=== PATIENT | male | born 1985 | race Two or more races ===

== ENCOUNTER → 2024-01-29 | Outpatient (CLI) | payer BC, SELFPAY ==
[2024-01-29 13:39] LABS: Basophils % (Auto) 1 % (0-2.5); Eosinophils # (Auto) 0.1 Thou/mm3 (0.0-0.5); Eosinophils % (Auto) 2 % (0-10); Hematocrit 46.8 % (41.0-53.0); Hemoglobin 16.7 g/dL (13.5-16.0); Immature Granulocytes % (Auto) 0 % (0-0); Immature Granulocytes Auto 0.01 Thou/mm3 (0.00-0.00); Lymphocytes # (Auto) 2.4 Thou/mm3 (1.0-4.8); Lymphocytes % (Auto) 37 % (10-50); Mean Corpuscular HGB Conc 35.7 g/dl (31.0-37.0); Mean Corpuscular Volume 84 fL (80-100); Monocytes # (Auto) 0.4 Thou/mm3 (0.0-0.8); Monocytes % (Auto) 7 % (0-12); Neutrophils # (Auto) 3.5 Thou/mm3 (1.8-7.7); Neutrophils % (Auto) 54 % (37-80); Nucleated Red Blood Cell % 0 /100 WBC (0); Platelet Count 247 Thou/mm3 (140-440); RDW Standard Deviation 37.1 fL (35.1-43.9); Red Blood Count 5.56 Miln/mm3 (4.50-5.90); White Blood Count 6.5 Thou/mm3 (3.8-10.6)
[2024-01-29 13:58] LABS: Prostate Specific Antigen 0.79 ng/mL (0-4.00)
[2024-01-29 14:02] LABS: Vitamin D 25 Hydroxy Total 17.2 ng/mL (7.3-40.2)
[2024-02-18 09:09] LABS: Testosterone, Total, Dialysis 154 ng/dL (250-1100)
== END | disposition home or self-care (01) ==
PROVIDERS: PCP Family Medicine; Referring Provider Nurse Practitioner Family; Visit Provider Nurse Practitioner Family
DX: E55.9 Vitamin D deficiency, unspecified (principal); R53.83 Other fatigue; Z13.89 Encounter for screening for other disorder; Z12.5 Encounter for screening for malignant neoplasm of prostate; R97.20 Elevated prostate specific antigen [PSA]; R97.21 Rising PSA following treatment for malignant neoplasm of prostate; Z13.9 Encounter for screening, unspecified
CPT/HCPCS: 36415; 82306; 84153; 84402; 84403; 85025

== ENCOUNTER 2024-06-14 21:26 | Emergency (ER) | payer BC, SELFPAY ==
[2024-06-14 21:27] VITALS: BMI 34.4
--- NOTE | 2024-06-14 21:29 | EKG_ITS ---
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
[2024-06-14 21:35] VITALS: BP 150/95; PULSE 74; RESP 20; TEMP 37.1; O2SAT 96
--- NOTE | 2024-06-14 21:40 | XR_ITS ---
Examination: PA and lateral chest 2 views TECHNIQUE: Upright PA lateral chest 2 views Standing type: June 14, 2024 2147 hours INDICATIONS: Chest pain beginning 2:00 today. FINDINGS: Normal heart size Lungs are clear. The osseous structures are intact IMPRESSION: No active disease
--- NOTE | 2024-06-14 21:40 | PD.EDRME ---
Rapid Medical Screening Exam E Arrival date/time: 06/14/24 21:26 This is a 38-year-old male that comes in with complaints of chest pain. Patient states that over the last couple days he has been having palpitations. Sometimes the palpitations wake him up in the middle the night while he sleeping. Patient currently undergoing therapy for low testosterone. Patient denies any surgical history. I have greeted and performed a focused initial assessment of this patient. Initial appropriate labs ordered at this time. A comprehensive ED assessment and evaluation of the patient and analysis of all test and completion of medical decision making process will be conducted by additional ED provider. Chief Complaint: Chest Pain Time Seen by Provider: 06/14/24 21:34 Vital signs: Vital Signs Temperature 98.8 F 06/14/24 21:35 Pulse Rate 74 06/14/24 21:35 Respiratory Rate 20 06/14/24 21:35 Blood Pressure 150/95 H 06/14/24 21:35 Pulse Oximetry (%) 96 06/14/24 21:35 Oxygen Delivery Method Room Air 06/14/24 21:35
[2024-06-14 22:08] LABS: Basophils # (Auto) 0.1 Thou/mm3 (0.0-0.2); Basophils % (Auto) 1 % (0-2.5); Eosinophils # (Auto) 0.3 Thou/mm3 (0.0-0.5); Eosinophils % (Auto) 3 % (0-10); Hemoglobin 16.9 g/dL (13.5-16.0); Immature Granulocytes % (Auto) 0 % (0-0); Immature Granulocytes Auto 0.03 Thou/mm3 (0.00-0.00); Lymphocytes # (Auto) 3.3 Thou/mm3 (1.0-4.8); Lymphocytes % (Auto) 38 % (10-50); Mean Corpuscular HGB Conc 35.2 g/dl (31.0-37.0); Mean Corpuscular Hemoglobin 30.3 pg (25.0-35.0); Mean Corpuscular Volume 86 fL (80-100); Monocytes # (Auto) 0.7 Thou/mm3 (0.0-0.8); Monocytes % (Auto) 7 % (0-12); Neutrophils # (Auto) 4.5 Thou/mm3 (1.8-7.7); Neutrophils % (Auto) 51 % (37-80); Nucleated Red Blood Cell % 0 /100 WBC (0); Platelet Count 234 Thou/mm3 (140-440); RDW Standard Deviation 38.8 fL (35.1-43.9); Red Blood Count 5.57 Miln/mm3 (4.50-5.90); White Blood Count 8.9 Thou/mm3 (3.8-10.6)
[2024-06-14 22:24] LABS: B-Type Natriuretic Peptide < 20 pg/mL (0-100)
[2024-06-14 22:27] LABS: Alanine Aminotransferase 51 U/L (10-49); Albumin, Serum 4.7 gm/dL (3.5-5.0); Albumin/Globulin Ratio 1.9 (1.2-2.2); Alkaline Phosphatase 63 U/L (46-116); Anion Gap 5 (7-16); Aspartate Amino Transferase 32 U/L (0-34); BUN/Creatinine Ratio 7 Ratio (12-20); Bilirubin,Total 0.6 mg/dL (0.3-1.2); Blood Urea Nitrogen 8 mg/dL (9-23); Calcium 9.5 mg/dL (8.3-10.6); Calcium (Corrected) 9.5 mg/dL (8.5-10.1); Carbon Dioxide 29.8 mMol/L (20.0-31.0); Chloride 109 mMol/L (98-107); Creatinine (Component) 1.1 mg/dL (0.6-1.3); Estimated Creatinine Clearance 114.7 mL/min (>60); Globulin 2.5 gm/dL (2.3-3.5); Glucose 94 mg/dL (74-106); Osmolality,Calculated 285 (275-295); Sodium 144 mMol/L (136-145); Total Protein 7.2 gm/dL (5.7-8.2); Troponin I < 0.002 ng/mL (0.0-0.045); eGFR > 60 See Note
[2024-06-15 01:18] LABS: Troponin I < 0.002 ng/mL (0.0-0.045)
[2024-06-15 02:30] VITALS: BP 136/81; PULSE 61; RESP 18; TEMP 36.7; O2SAT 97
--- NOTE | 2024-06-15 02:37 | PD.EDCHEST ---
ED Chest Pain RME/HPI General Chief Complaint: Chest Pain Stated Complaint: CHEST PAIN SINCE 1400 Time Seen by Provider: 06/14/24 21:34 Source: patient, family, RN notes reviewed and old records reviewed Arrival date/time: 06/14/24 21:26 Mode of arrival: ambulatory Limitations: no limitations RME / HPI RME / HPI narrative: 38yom presents to the ED for chest pain since 1400 today. No exacerbating factors, pain just comes and goes. Patient reports intermittent palpitations for the past week. Currently on testosterone, dose was increased approximately 1 month ago. No cough, shortness of breath, LE edema, dizziness or syncope reported. 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 Previous Rx's ?Medication ?Instructions ?Recorded metaxalone 800 mg tablet (Skelaxin) 800 mg PO Q8HR PRN muscle pain #30 01/10/18 tabs methylprednisolone 4 mg tablets in See Rx Instructions PO PER PKG DIR 01/10/18 a dose pack (Medrol (Marlo)) #21 tabs Allergies Allergy/AdvReac Type Severity Reaction Status Date / Time No Known Allergies Allergy Verified 11/29/17 20:59 Review of Systems Review of Systems Systems Reviewed: All systems reviewed, normal except as documented Constitutional Constitutional: Denies fever(s) ENT Ears, Nose, Mouth, and Throat: Denies dizziness Cardiovascular Cardiovascular: Reports chest pain, Denies dyspnea, Denies leg edema, Denies lightheadedness, Reports palpitations and Denies syncope Respiratory Respiratory: Denies dyspnea Gastrointestinal Gastrointestinal: Denies nausea and Denies vomiting Neurologic Neurologic: Denies dizziness and Denies syncope Endocrine Endocrine: Reports palpitations Past Medical History Past Medical History GASTROINTESTINAL: Positive Obesity Surgical History OTHER SURGICAL HX: Appendectomy, vasectomy Social History SMOKING STATUS: Never smoker SUBSTANCE USE: does not use ALCOHOL: Current (Social) ED Exam General Limitations: Present no limitations General appearance: Present alert and in no apparent distress Head Head exam: Present atraumatic and normocephalic Eye Eye exam: Present normal appearance, PERRL and EOMI ENT ENT exam: Present normal exam and mucous membranes moist Neck Neck exam: Present normal inspection and full ROM Chest Chest inspection: Present normal inspection and symmetric chest wall rise Respiratory Respiratory exam: Present normal lung sounds bilaterally; Absent respiratory distress Cardiovascular Cardiovascular exam: Present regular rate and normal rhythm Extremities Exam Extremities exam: Present normal inspection and full ROM; Absent pedal edema Neurological Exam Neurological exam: Present alert and oriented X3 Psychiatric Psychiatric exam: Present normal affect and normal mood Skin Skin exam: Present warm, dry, intact and normal color Course Quality Measures none Orders Category Date Time Status EKG (ED ONLY) *Do not use* NOW Care 06/14/24 21:29 Completed EKG (ED Only) Stat Exams 06/14/24 21:29 Draft XR chest 2V Stat Exams 06/14/24 21:40 Completed BNP [B-Type Natriuretic Peptide] Stat Lab 06/14/24 21:59 Completed CBC Stat Lab 06/14/24 21:59 Completed Comprehensive Metabolic Panel Stat Lab 06/14/24 21:59 Completed D-Dimer Stat Lab 06/15/24 02:05 Completed TSH [Thyroid Stimulating Hormone] Stat Lab 06/15/24 02:05 Completed Troponin I Stat Lab 06/14/24 21:59 Completed Troponin I Stat Lab 06/15/24 00:50 Completed Vital Signs Vital signs: Vital Signs Temperature 98.8 F 06/14/24 21:35 Pulse Rate 74 06/14/24 21:35 Respiratory Rate 20 06/14/24 21:35 Blood Pressure 150/95 H 06/14/24 21:35 Pulse Oximetry (%) 96 06/14/24 21:35 Oxygen Delivery Method Room Air 06/14/24 21:35 Procedures -ED EKG Interpretation #1: Date of EK06/14/24 Rate: 79 Interpretation: Interpreted by me EKG Impression: Normal sinus rhythm, No acute ST-T changes, No ectopy, No ischemic changes, Normal QRS, Normal intervals and Normal axis Chest Pain MDM Narrative MDM Narrative:: 38yom presents to the ED for chest pain since 1400 today. No exacerbating factors, pain just comes and goes. Patient reports intermittent palpitations for the past week. Currently on testosterone, dose was increased approximately 1 month ago. No cough, shortness of breath, LE edema, dizziness or syncope reported. 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 Encouraged close follow with pcp. Stable for dc, RTED precautions given. Patient data External records reviewed:: [facility] previous records (11/29/2017 UC visit for headache) Clinical information provided by:: patient and spouse Social determinants that could affect healthcare access:: none Patient has the following chronic illnesses:: Obesity How is presenting disease/condition affected by chronic disease/condition?: uneffected by Evaluation data The following diagnostics were reviewed and interpreted by me:: lab results, radiology exam(s) and EKG tracing(s) Lab and/or radiology exams considered but not ordered:: CTA chest: do not suspect PE at this time Interpretation Summary: Troponin x 2 negative CXR no acute process per my read D-dimer negative TSH wnl Medications / Prescriptions Medications or Prescriptions considered but not ordered:: No antibiotics recommended at this time Medication administrations:: None Consultations Consultation(s) initiated? (list below): No Diagnosis Chest Pain Differential Diagnosis: pneumothorax, unstable angina pectoris, st elevation myocardial infarction, costochondritis and other (PE) Most likely diagnosis given after review of the tests above:: cp, palpitations Admission Indicated Admission indicated?: not indicated Admission Request Was there a request for admission?: No Disposition Plan Disposition Plan: Discharge Discharge Attestation Discharge Attestation: The patient and all family members were given an opportunity to ask questions and understood the discharge instructions. Discharge instructions specifically effects, indications for sooner follow up or return to the emergency department, and the expected course of current diagnosis. Patient condition: Stable Discharge Plan Plan Patient Disposition: HOME (Self Care) Patient condition on transfer: Stable Prescriptions/Referrals Prescriptions/Med Rec: No Action methylprednisolone [Medrol (Marlo)] 4 mg tablets,dose pack See Rx Instructions PO PER PKG DIR Qty: 21 0RF Dose Instruction: PO PER PKG DIR Rx Instructions: PO PER PKG DIR metaxalone [Skelaxin] 800 mg tablet 800 mg PO Q8HR PRN (Reason: muscle pain) Qty: 30 0RF Referrals: No Primary/Family,Physician [Primary Care Provider] - In 1 week Problem List Clinical Impression: Chest pain, Palpitations Patient/Caregiver Discharge Instructions Education Materials: ED Chest Pain, Uncertain Cause Print Language: American Stand Alone Forms: Susie Award Info., Work/School Release, Patient Portal Info Letter PA/COMMAND CENTER ANALYST Supervising Physician PA/FELIZ Supervising Physician: Ilya
[2024-06-15 02:43] LABS: Thyroid Stimulating Hormone 3.11 uIU/mL (0.55-4.78)
[2024-06-15 02:54] LABS: D-Dimer < 250 ng/mL (<600)
== END 2024-06-15 03:03 | disposition home or self-care (01) ==
PROVIDERS: Nurse Practitioner Family; Physician Assistant; Emergency Provider Emergency Medicine
DX: R07.9 Chest pain, unspecified (principal); R00.2 Palpitations
CPT/HCPCS: 36415; 71046; 80053; 83880; 84443; 84484; 85025; 85379; 93005; 99283

== ENCOUNTER → 2024-08-09 | Outpatient (CLI) | payer BC, SELFPAY ==
[2024-08-15 06:55] LABS: Testosterone, Free,Dialysis 71.6 pg/mL (35.0-155.0); Testosterone, Total, Dialysis 369 ng/dL (250-1100)
== END | disposition home or self-care (01) ==
PROVIDERS: PCP Nurse Practitioner Family; Referring Provider Nurse Practitioner Family; Visit Provider Nurse Practitioner Family
DX: Z01.89 Encounter for other specified special examinations (principal); R53.83 Other fatigue
CPT/HCPCS: 36415; 84402; 84403

== ENCOUNTER → 2025-01-18 | Outpatient (CLI) | payer BC, SELFPAY ==
[2025-01-23 06:42] LABS: Testosterone, Free,Dialysis 123.3 pg/mL (35.0-155.0); Testosterone, Total, Dialysis 592 ng/dL (250-1100)
== END | disposition home or self-care (01) ==
PROVIDERS: PCP Nurse Practitioner Family; Referring Provider Nurse Practitioner Family; Visit Provider Nurse Practitioner Family
DX: R53.83 Other fatigue (principal)
CPT/HCPCS: 36415; 84402; 84403